=== PATIENT | male | born 1980 | race Caucasian/White ===

== ENCOUNTER 2020-11-24 15:46 | Outpatient (CLI) | payer BC, SELFPAY | END 2020-11-24 15:47 | disposition home or self-care (01) | LOC: ANHCOVIDVC 15:46 | PROVIDERS: PCP Family Medicine | DX: Z23 Encounter for immunization (principal) | CPT/HCPCS: 0001A; 91300 ==

== ENCOUNTER 2020-12-15 15:42 | Outpatient (CLI) | payer BC, SELFPAY | END 2020-12-15 15:43 | disposition home or self-care (01) | LOC: ANHCOVIDVC 15:42 | PROVIDERS: PCP Family Medicine | DX: Z23 Encounter for immunization (principal) | CPT/HCPCS: 0002A; 91300 ==

== ENCOUNTER 2021-01-30 19:02 | Emergency (ER) | payer BC, SELFPAY ==
[2021-01-30] VITALS (14 sets, daily range): BP systolic 122–155; BP diastolic 69–84; PULSE 55–70; RESP 8–21; TEMP 36.8; O2SAT 98–99
--- NOTE | ~2021-01-30 | CT_ITS ---
EXAMINATION: CTA chest abdomen pelvis DATE: 01/30/2021 20:16 INDICATION: Chest pain radiating to shoulder blades, upper back pain, epigastric pain. TECHNIQUE: Computed tomography (CT) of the chest, abdomen, and pelvis was performed with 100 cc Omnip aque 350 intravenous contrast. Automated exposure control and iterative reconstruction technique were employed. Exam dose: 1942.05 mGy-cm total exam DLP. COMPARISON: 01/30/2021 AP and lateral chest FINDINGS: CHEST CT: No thoracic aortic aneurysm or dissection. No hilar or mediastinal mass lesion or lymphadenopathy. The included portion of the thyroid gland zee ears unremarkable. Normal heart size. No pericardial or pleural effusion. Included skeletal structures are unremarkable. ABDOMEN/PELVIS CT: The liver, gallbladder, bile ducts, spleen, pancreas and pancreatic duct are unremarkable. Normal mor phology of the adrenal glands. No renal mass lesion or urinary tract calculus or hydroureteronephrosi s. The urinary bladder and prostate gland and seminal vesicles are unremarkable. Normal caliber of the abdominal aorta. No abdominal aortic aneurysm or dissection. No intraperitoneal or retroperitoneal or pelvic mass lesion or adenopathy or ascites. Normal appendix. No bowel obstruction, bowel wall thickening, pneumatosis or intraperitoneal free air is detected. Small fat-containing left inguinal hernia. Very small fat-containing umbilical hernia. Included skeletal structures are unremarkable. IMPRESSION: No thoracic or abdominal aortic aneurysm or dissection; no other significant abnormality Reviewed, dictated and finalized at [facility]. Reviewed, dictated and finalized at location A. IMPRESSION: No thoracic or abdominal aortic aneurysm or dissection; no other s ignificant abnormality
--- NOTE | ~2021-01-30 | XR_ITS ---
XR chest 2V DATE: 01/30/2021 19:42 INDICATION: Chest pain for one day TECHNIQUE: AP and lateral views COMPARISON: None FINDINGS: Normal heart size. No hilar or mediastinal enlargement. No pulmonary infiltrate or consolid ation, pleural effusion or pulmonary vascular congestion or pneumothorax. Included skeletal structure s are unremarkable. IMPRESSION: No active cardiopulmonary disease Reviewed, dictated and finalized at location A.
--- NOTE | 2021-01-30 19:08 | ECG_ITS ---
Measurements Intervals [place] Rate: 56 P: 50 [place]: 180 QRS: 72 QRSD: 98 T: 58 QT: 417 QTc: 405 Interpretive Statements SINUS BRADYCARDIA BASELINE WANDER- V4-V5 BORDERLINE ECG Electronically Signed On 01-31-2021 8:17:33 CDT by Bassam Peralta D.O.
[2021-01-30 19:31] LABS: Basophils Percent Auto 0.4 % (0.2-1.2); Eosinophils Absolute Auto 0.3 K/mm3 (0-0.3); Eosinophils Percent Auto 2.5 % (0-4.4); Hematocrit 45.7 % (42.0-52.0); Hemoglobin 15.6 g/dL (14.0-18.0); Immature Granulocyte Absolute 0.03 K/mm3 (0.00-0.031); Immature Granulocyte Percent A 0.3 % (0-0.5); Lymphocytes Absolute Auto 3.71 K/mm3 (0.9-3.2); Mean Corpuscular HGB Conc 34.1 g/dl (32-36); Mean Corpuscular Hemoglobin 29.4 pg (26-34); Mean Corpuscular Volume 86.2 fl (80-100); Mean Platelet Volume 9.3 fl (7.4-10.4); Monocytes Absolute Auto 0.8 K/mm3 (0.1-0.6); Monocytes Percent Auto 6.8 % (2.6-8.5); Neutrophils Absolute Auto 6.4 K/mm3 (1.3-6.7); Platelet Count Result 282 k/mm3 (150-375); Red Cell Distribution Width 12.4 % (11.5-14.5); White Blood Count 11.3 K/mm3 (4.5-10.0)
[2021-01-30] MEDS: MORPHINE SULFATE (*CRX) 4 MG/ML INJ IV PUSH (19:35)
[2021-01-30] MEDS: ONDANSETRON INJ 4 MG/2 ML VIAL IV PUSH (19:35)
[2021-01-30 19:40] LABS: Anion Gap 8 mmol/L (8-16); Blood Urea Nitrogen 16 mg/dL (9-20); Calcium 9.5 mg/dL (8.4-10.2); Carbon Dioxide 27 mmol/L (22-30); Chloride 105 mmol/L (98-107); Estimated CRCL calculation 117 ml/min; Estimated Glomerular Filt Rate > 60; Glucose 120 mg/dL (75-110); INR 0.9; Potassium 3.8 mmol/L (3.4-5.0); Sodium 140 mmol/L (137-145)
[2021-01-30 19:41] LABS: Partial Thromboplastin Time 21.3 SECONDS (22.3-36.8)
[2021-01-30 19:50] LABS: Alanine Aminotransferase 20 U/L (4-50); Albumin Level 4.5 g/dL (3.5-5.1); Alkaline Phosphatase 70 U/L (38-126); Aspartate Amino Transferase 27 U/L (17-59); Bilirubin,Total 0.3 mg/dL (0.2-1.3); Lipase 70 U/L (23-300)
[2021-01-30 19:52] LABS: Troponin I < 0.012 ng/mL (0.000-0.034)
--- NOTE | 2021-01-30 20:06 | ED.CHESTPAIN ---
HPI - Chest Pain General Chief Complaint: Chest Pain Stated Complaint: CP Time Seen by Provider: 01/30/21 19:06 History of Present Illness HPI narrative: Patient is a 40-year-old male who presents ER with chest pain and epigastric pain. Symptoms began in the afternoon. Chest pain is a aching pain that radiates to his back between her shoulder blades. Associated with epigastric tenderness as well. Mild nausea but no vomiting. No fevers or chills or sweats. No exertional component. Unsure of aggravating or alleviating factors. Patient reports he feels like if he could belch he would feel better. Related Data Home Medications Medication Instructions Recorded Confirmed aspirin 325 mg tablet 325 mg PO DAILY 11/10/20 11/13/20 guaifenesin 600 mg tablet, 600 mg PO ONCE tablet 11/10/20 11/13/20 extended release 12 hr Allergies Allergy/AdvReac Type Severity Reaction Status Date / Time cefazolin [From Ancef] AdvReac Mild Rash Verified 01/01/21 10:58 Review of Systems Review of Systems: All systems reviewed & are unremarkable except as noted in HPI and below Constitutional: Constitutional: Denies chills, Denies fever(s) and Denies weakness ENT: Denies nasal congestion and Denies sore throat Cardiovascular: Cardiovascular: Reports chest pain, Denies rapid heart rate and Reports radiating jaw, neck or arm pain Respiratory: Respiratory: Denies cough and Denies dyspnea Gastrointestinal: Gastrointestinal: Reports abdominal pain, Reports bloating, Denies diarrhea, Reports nausea and Denies vomiting [facility] Past Medical History Medical History (Updated 01/30/21 @ 21:29 by Shawn Rondon MD) Factor 5 Leiden mutation, heterozygous Torsion of testicle Surgical History Surgical History (System 01/01/21 @ 10:58 by Elzbieta Gonzalez) H/O medial meniscus repair of right knee H/O superior vena cava filter placement History of medial meniscus repair of left knee Family History Family History (System 01/01/21 @ 10:58 by Elzbieta Gonzalez) Father Diabetes mellitus Non Hodgkin's lymphoma Other Cerebrovascular accident Social History Social History (System 01/01/21 @ 10:58 by Elzbieta Gonzalez) Smoking status: Never smoker Alcohol intake: current Substance use: never Substance use type: does not use Gender identity (if verbalized by the patient): Male Agree to blood products: Yes Exam Narrative: Exam Narrative: GENERAL: Uncomfortable-appearing, well-nourished, and in mild distress. HEAD: Normocephalic, atraumatic. ENT: Mucous membranes moist. CHEST: Clear to auscultation. No respiratory distress. HEART: Regular rate and rhythm. Normal peripheral pulses. ABDOMEN: Soft, tender to palpation to the epigastrium with guarding, nondistended. EXTREMITIES: Normal range of motion. No edema. SKIN: Warm, dry, no rash. NEURO: Alert and oriented x3. PSYCH: Normal mood and affect. Course Course Emergency Course: Patient resting comfortably. Pain-free after morphine. Repeat abdominal exam without tenderness. Informed results. Patient still may be suffering from biliary colic and has been educated to adhere to a low-fat diet. Needs follow-up with his PCP for further treatment evaluation. Vital Signs Vital signs: Vital Signs Pulse Rate 59 L 01/30/21 19:07 Respiratory Rate 14 01/30/21 19:07 Blood Pressure 155/84 H 01/30/21 19:07 Pulse Oximetry 98 01/30/21 19:07 Temperature 98.2 F 01/30/21 19:21 Pulse Rate 70 01/30/21 21:12 Respiratory Rate 15 01/30/21 21:12 Blood Pressure 124/78 01/30/21 21:12 Pulse Oximetry 99 01/30/21 21:12 MDM - Chest Pain Lab Data Result diagrams: 01/30/21 19:25 01/30/21 19:25 Labs: Lab Results 01/30/21 01/30/21 01/30/21 Range/Units 19:25 19:25 19:25 WBC 11.3 H (4.5-10.0) K/mm3 RBC 5.30 (4.6-6.20) M/mm3 Hgb 15.6 (14.0-18.0) g/dL Hct 45.7 (42.0-52.0) % MCV 86.2
== END 2021-01-30 21:20 | disposition home or self-care (01) ==
PROVIDERS: Emergency Provider Emergency Medicine; PCP Family Medicine
DX: R10.13 Epigastric pain (principal); Z79.82 Long term (current) use of aspirin; D68.51 Activated protein C resistance; R00.1 Bradycardia, unspecified
CPT/HCPCS: 36415; 71046; 71275; 74174; 80048; 80076; 83690; 84484; 85025; 85610; 85730; 93005; 96374; 96375; 99284; J2270; J2405; Q9967

== ENCOUNTER → 2021-02-10 07:51 | Outpatient (CLI) | payer BC, SELFPAY ==
--- NOTE | ~2021-02-10 | US_ITS ---
EXAMINATION: US abdomen complete DATE: 02/10/2021 08:20 INDICATION: Epigastric pain, calculus of bile duct without cholangitis or cholecystitis TECHNIQUE: Multiple grayscale and Doppler ultrasound images of the abdomen were obtained. COMPARISON: 01/30/2021 FINDINGS: The head and body of the pancreas are normal. The pancreatic tail is obscured by bowel gas. The liver demonstrates increased echogenicity, heterogenous echotexture, and decreased through trans mission. No surface nodularity. Normal hepatopetal flow in the main portal vein. The gallbladder is n ormal with no abnormal wall thickening, pericholecystic fluid or stones. The normal common bile duct measures 3 mm. There was no sonographic Reyes sign. The visualized portions of the aorta and inferio r vena cava are normal. The right kidney measures 11.8 x 5.1 x 6.1 cm. The left kidney measures 12.0 x 5.3 x 6.0 cm. The kidn eys demonstrate normal parenchymal echogenicity. There is no hydronephrosis. The spleen is normal in appearance and measures 13.8 cm. IMPRESSION: 1. No sonographic correlate for the patient's symptoms. 2. Diffuse hepatic steatosis. Reviewed, dictated and finalized at location B.
== END ==
PROVIDERS: PCP Family Medicine; Visit Provider Physician Assistant Medical
DX: K80.50 Calculus of bile duct without cholangitis or cholecystitis without obstruction (principal); K76.0 Fatty (change of) liver, not elsewhere classified
CPT/HCPCS: 76700

== ENCOUNTER 2021-02-22 07:09 | Outpatient (CLI) | payer BC, SELFPAY ==
[2021-02-22 07:55] LABS: Basophils Percent Auto 0.4 % (0.2-1.2); Eosinophils Absolute Auto 0.3 K/mm3 (0-0.3); Eosinophils Percent Auto 3.4 % (0-4.4); Hematocrit 47.5 % (42.0-52.0); Hemoglobin 16.3 g/dL (14.0-18.0); Immature Granulocyte Absolute 0.02 K/mm3 (0.00-0.031); Immature Granulocyte Percent A 0.3 % (0-0.5); Lymphocytes Absolute Auto 2.14 K/mm3 (0.9-3.2); Lymphocytes Percent Auto 27.9 % (18.3-44.2); Mean Corpuscular HGB Conc 34.3 g/dl (32-36); Mean Corpuscular Hemoglobin 29.9 pg (26-34); Monocytes Absolute Auto 0.6 K/mm3 (0.1-0.6); Monocytes Percent Auto 7.8 % (2.6-8.5); Neutrophils Absolute Auto 4.6 K/mm3 (1.3-6.7); Neutrophils Percent Auto 60.2 % (45.5-73.1); Platelet Count Result 229 k/mm3 (150-375); Red Blood Count 5.46 M/mm3 (4.6-6.20); Red Cell Distribution Width 12.4 % (11.5-14.5); White Blood Count 7.7 K/mm3 (4.5-10.0)
== END 2021-02-22 07:10 | disposition home or self-care (01) ==
PROVIDERS: PCP Family Medicine; Visit Provider Physician Assistant Medical
DX: D72.829 Elevated white blood cell count, unspecified (principal)
CPT/HCPCS: 36415; 85025

== ENCOUNTER 2021-05-28 08:07 | Outpatient (CLI) | payer BC, SELFPAY ==
[2021-05-28 09:59] LABS: Alanine Aminotransferase 23 U/L (4-50); Aspartate Amino Transferase 40 U/L (17-59)
== END 2021-05-28 08:08 | disposition home or self-care (01) ==
PROVIDERS: PCP Family Medicine; Visit Provider Podiatrist Foot & Ankle Surgery
DX: B35.1 Tinea unguium (principal)
CPT/HCPCS: 36415; 84450; 84460

== ENCOUNTER 2022-03-15 00:04 | Day surgery (SDC) | payer BC, SELFPAY ==
[2022-03-07 13:26] VITALS: BMI 40.8
--- NOTE | 2022-03-07 13:33 | PC.NURSE ---
Report to the Outpatient Waiting Room, entrance under the green pavilion located off [facility], at time _0600_ on date _[id number]_. OR Time: _0730_. - You and your visitor will be asked a series of questions to screen for COVID 19 for your protection. - Only one visitor is allowed at this time. - The patient visitor is requested to leave or wait in car when not with patient. - A mask is required within the hospital. Patients may have clear liquids (water, carbonated beverages, clear teas, apple juice) until 3 hours prior to surgery with a maximum of 20 ounces. - No food from midnight until time of surgery Take the following medications with a SIP of water the morning of surgery: ___None Medications to discontinue per physician Patient says stopping aspirin 7 days before surgery.___ Date to take last lnfk___[id number] Please no make-up, nail mosotho, hairspray, perfume, deodorant, or body powder the day of surgery. No jewelry (including any body piercings) or valuables the day of surgery, leave them at home. Please take a shower or bath the night before, or the morning of, surgery with an antibacterial soap. Wear comfortable, loose fitting clothing. - Jewelry must be removed prior to entering the operating room. Rings and piercings that are not removed may be cut off. - The hospital will not accept responsibility for valuables. - Please leave all valuables, including medications, at home the day of surgery. If you are going home after surgery, a licensed regional [employer] company driver must drive you home. - NO public transportation without another adult. - We recommend that an adult stay with you for 24 hours following discharge. - We also recommend that you do not drive, make important decision, drink alcoholic beverages, or take any drugs that were not prescribed by your health care provider for at least 24 hours after your discharge time. Follow any additional instructions given to you from your surgeon. If you or anyone in your household have experienced Covid symptoms in the past week, please notify your surgeon or the nurse liaison at the phone number below for possible testing. Telephone instructions given to _Patient____and asked if any additional questions and then verbalized understanding. Patient advised to call surgeon office or pre surgery nurse liaison [phone] if any additional questions.
--- NOTE | 2022-03-14 13:30 | WPDANESEPPF ---
Anes - Initial Pre Proc Eval Procedure: Operation Date: 03/15/22 07:30 Proposed Procedures p Bilateral Vasectomy, Bilateral Scrotal Exploration - Carlos Armstrong MD Date/Time: 03/14/22 13:30 Surgeon: Carlos Armstrong MD Pre Op Diagnosis: sterilization Patient Data Age: 41 Gender: M Height: 1.83 m Weight: 136.4 kg Allergies Allergy/AdvReac Type Severity Reaction Status Date / Time cefazolin [From Anc] Allergy Mild Rash Verified 03/15/22 07:05 Home Medications Medication Instructions Recorded Confirmed Type aspirin 325 mg tablet 325 mg PO DAILY 11/10/20 03/07/22 History terbinafine HCl 250 mg tablet 250 mg PO DAILY #90 tabs 01/12/22 03/07/22 Rx efinaconazole 10 % topical 1 applic topical DAILY 03/07/22 03/07/22 History solution with applicator (Jublia) Patient hx anesthesia problems: none Family hx anesthesia problems: none Results Review: All pre-operative results and documents have been reviewed as part of the pre-operative evaluation. [facility] Past Medical History Medical History Body mass index (BMI) of 40.1-44.9 in adult Factor 5 Leiden mutation, heterozygous Torsion of testicle Surgical History Surgical History H/O medial meniscus repair of right knee H/O superior vena cava filter placement History of medial meniscus repair of left knee Family History Family History Father Diabetes mellitus Non Hodgkin's lymphoma Other Cerebrovascular accident Social History Social History Smoking status: Never smoker Second hand tobacco smoke exposure: No Alcohol intake: current Drinks per week: 8 Alcohol use details: Pt drinks beer/wine 2-3 weekly Substance use: never Substance use type: does not use Living arrangements: with family Gender identity (if verbalized by the patient): Male Sexual Orientation (if Verbalized by the Patient): Straight or Heterosexual Spiritual care concerns: No Agree to blood products: Yes Anes - Eval Final PreProcedure Day of Procedure 03/14/22 13:30 Patient weight: morbidly obese Heart: regular rate and rhythm Lungs: clear to auscultation Airway: Mallampati scale class II Neurological: alert and oriented Last oral intake: >/= 8 hours ASA classification: III Emergent: no Anesthetic plan: proceed Anesthesia type and monitoring: general LMA and standard monitoring Results Review: All pre-operative results and documents have been reviewed as part of the pre-operative evaluation. Informed Consent: The patient's anesthetic plan and its attendant risks and benefits were discussed with the patient/family/POA. Questions were solicited and answers provided to the satisfaction of the patient/family/POA.
[2022-03-15] VITALS (8 sets, daily range): BP systolic 129–153; BP diastolic 80–96; PULSE 63–82; RESP 13–18; TEMP 36.2–36.5; O2SAT 95–100
[2022-03-15] MEDS: LACTATED RINGERS 1,000 ML 30 ML IV CONT (06:52)
--- NOTE | 2022-03-15 07:27 | WPDHPUPDATE1 ---
History and Physical Update Update Date/Time: 03/15/22 07:27 History and Physical has been reviewed, including an updated exam of the patient. There are NO changes in the patient's condition. Risks, benefits, and alternatives have been discussed and questions answered. Patient agrees to proceed with procedure. Proceed with bilateral vasectomy, possible scrotal exploration
[2022-03-15] MEDS: levoFLOXacin 500 MG/D5W 100 ML 500 MG/100 ML BAG 100 MG IVPB (07:44)
[2022-03-15] MEDS: BACITRACIN OINTMENT 15 GM TUBE 1 APPLIC TOPICAL (07:57)
--- NOTE | 2022-03-15 08:05 | W.PM.PROC2 ---
Procedure Note - Detailed Date of Procedure 03/15/22 Pre-op Diagnosis sterilization Post-op Diagnosis Same Procedure Performed Bilateral vasectomy Surgeon Carlos Armstrong MD Anesthesia General Description of Procedure Patient is taken to the operative suite correctly identified. Once anesthesia was obtained he was prepped and draped usual sterile fashion. A midline scrotal incision was made. The right vas was isolated. Vas clamp was placed on the vas. A segment was then excised the ends were fulgurated. They were then suture ligated using 3-0 chromic and were buried. The patient had a left orchiopexy and a much thicker left cord making it difficult to palpate the left vas in the office. Under anesthesia we were able to isolate the left vas. A segment also was excised with the ends fulgurated ligated and buried. 1% lidocaine was used to anesthetize the skin and the cord. The skin was closed using 3-0 chromic in interrupted fashion. Patient tolerated procedure well without complications and was taken recovery room stable condition. Estimated Blood Loss 0 Drains No Packing No Pathology Yes Complications No immediate complications Condition Stable Disposition PACU
== END 2022-03-15 09:51 | disposition home or self-care (01) ==
PROVIDERS: PCP Family Medicine; Visit Provider Urology
PROC: (CPT 55250; principal; 2022-03-15 07:30)
DX: Z30.2 Encounter for sterilization (principal); Z79.82 Long term (current) use of aspirin; D68.51 Activated protein C resistance; E66.01 Morbid (severe) obesity due to excess calories; Z68.41 Body mass index [BMI] 40.0-44.9, adult
CPT/HCPCS: 55250; 88300; A9270; J1100; J1956; J2250; J2405; J2704; J3010; J7120

== ENCOUNTER 2022-06-17 08:06 | Outpatient (CLI) | payer BC, SELFPAY ==
--- NOTE | ~2022-06-17 | US_ITS ---
EXAMINATION: US arterial ankle brachial ind DATE: 06/17/2022 09:45 INDICATION: Lower limb pain TECHNIQUE: Segmental pressures and plethysmographic and Doppler waveforms of the brachial and lower e xtremity arteries were obtained. COMPARISON: None. FINDINGS: Right and left brachial artery pressures of 123 mm Hg and 126 mm Hg, respectively, are concordant (no rmal difference <= 30 mmHg). The right ankle-brachial index (MALA) is 1.16 (normal >= 0.9-1.0). The right great toe-brachial index (TBI) is 0.25 (normal >= 0.65). Arterial Doppler waveforms are triphasic at the right posterior tibia l artery and biphasic at the right dorsalis pedis artery, both with brisk systolic upstrokes. The left MALA is 1.26. The left TBI is 0.74. Arterial Doppler waveforms are triphasic with brisk systo lic upstrokes at both left posterior tibial and dorsalis pedis arteries. IMPRESSION: 1. 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 2. No significant arterial occlusive disease to the left lower limb with normal left MALA and TBI. Reviewed, dictated and finalized at location B. IMPRESSION: 1. 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 2. No significant arterial occlusive disease to the left lower limb with normal left MALA and TBI.
--- NOTE | ~2022-06-17 | US_ITS ---
EXAMINATION: US venous doppler [facility] DATE: 06/17/2022 09:45 INDICATION: Lower limb pain TECHNIQUE: Grayscale ultrasound images without and with compression and Doppler ultrasound images of the bilateral lower extremity veins were obtained. COMPARISON: None. FINDINGS: The visualized portions of right common femoral vein, profunda (deep) femoral vein, femoral vein, pop liteal vein, posterior tibial veins, peroneal veins, gastrocnemius vein and greater saphenous vein ou tflow are patent. The visualized portions of left common femoral vein, profunda femoral vein, femoral vein, popliteal v ein, posterior tibial veins, peroneal veins, gastrocnemius vein and greater saphenous vein outflow ar e patent. IMPRESSION: 1. No deep venous thrombosis in either lower limb. Reviewed, dictated and finalized at location B.
== END 2022-06-17 08:07 | disposition home or self-care (01) ==
PROVIDERS: PCP Family Medicine; Visit Provider Nurse Practitioner Family
DX: D72.829 Elevated white blood cell count, unspecified (principal); M25.50 Pain in unspecified joint; R40.0 Somnolence
CPT/HCPCS: 93922; 93970

== ENCOUNTER 2022-08-05 07:52 | Outpatient (CLI) | payer BC, SELFPAY ==
--- NOTE | 2022-08-31 12:23 | WPDSLEEPSTUD ---
Sleep Study Date of Study: 08/05/22 Ordering Provider: Baljeet Biswas MD Interpreting Physician: Xenia Aranda MD Sleep Study Type: Polysomnogram Height: 1.83 m Weight: 145.15 kg Body Mass Index: 43.4 Neck Circumference (inches): 17.5 [place]: 6 Reason for Sleep Study Loud snoring Sleep History Ciaran Garrison is a 41-year-old male with a history of very loud snoring, although he does not awaken from sleep feeling short of breath. He rarely awakens at night with heartburn, belching or coughing. His snoring is always loud enough that others are aware and complain. He occasionally has trouble sleeping with a cold. He does not wake up gasping for breath at night. He does not have breathing problems at night observed by others. He does not sweat excessively at night or notice his heart pounding or beating irregularly at night. He rarely falls asleep during the day, rarely falls asleep involuntarily. He does not fall asleep while driving. He does not have loss of muscle tone with strong emotion. He does not have daytime difficulties due to excessive sleepiness. He does not feel paralyzed on waking or falling asleep nor does he have vivid dreamlike scenes on waking or falling asleep. He does not feel afraid to go to sleep. He rarely has nightmares. He frequently remembers his dreams. He frequently has racing thoughts. He rarely feels sad or depressed. He occasionally has anxiety and muscular tension. He does not notice parts of his body jerking. He does not kick at night. He always has crawling and aching feelings in his legs and leg pain at night. He does not have morning jaw pain. He does not grind his teeth at night. He constantly is bothered by pain during the day and occasionally awakened by pain at night. He constantly wakes up feeling stiff in the morning with sore achy muscles and pain in the neck and spine. He has problems with nasal allergies. He has gained weight during the last year. Normal bedtime is 9:00 p.m. falling asleep within 1/2 hour typically waking 1-2 times at night for 10 minutes to use the bathroom. He returns to sleep, wakes the morning at 6:00 a.m.. His weekend schedule is similar, bedtime is 10:00 p.m. and he wakes between 6 and 7:00 a.m.. He estimates getting 8-9 hours of sleep at night. He does not take naps in the afternoon or evening. A brief nap lasting 10 or 15 minutes is not refreshing. He is usually drowsy in the morning for 2 hours or longer. He feels better in the afternoon compared to other times of day. Habits: Never smoked tobacco. Caffeine 3-4 per day. Alcohol very rarely once or twice a week. No recreational substance use. [facility], [facility] Past Medical History Medical History Body mass index (BMI) of 40.1-44.9 in adult Factor 5 Leiden mutation, heterozygous Torsion of testicle Surgical History Surgical History H/O medial meniscus repair of right knee H/O superior vena cava filter placement H/O vasectomy History of medial meniscus repair of left knee Family History Family History Father Diabetes mellitus Non Hodgkin's lymphoma Mother Hypertension Sibling No problems noted. 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
[2022-08-31 12:36] VITALS: BMI 43.4
== END 2022-08-06 06:22 | disposition home or self-care (01) ==
LOC: ANHCSM 07:53
PROVIDERS: PCP Family Medicine; Visit Provider Family Medicine
DX: G47.33 Obstructive sleep apnea (adult) (pediatric) (principal); G47.10 Hypersomnia, unspecified; R40.0 Somnolence; Z68.41 Body mass index [BMI] 40.0-44.9, adult
CPT/HCPCS: 95810

== ENCOUNTER 2023-08-21 14:11 | Outpatient (CLI) | payer BC, SELFPAY ==
[2023-08-21 14:41] LABS: Alanine Aminotransferase 30 U/L (6-50); Aspartate Amino Transferase 43 U/L (17-59)
== END 2023-08-21 14:12 | disposition home or self-care (01) ==
LOC: ANHLAB 14:13
PROVIDERS: PCP Family Medicine; Visit Provider Podiatrist Foot & Ankle Surgery
DX: B35.1 Tinea unguium (principal)
CPT/HCPCS: 36415; 84450; 84460

== ENCOUNTER 2024-03-06 08:43 | Outpatient (CLI) | payer BC, SELFPAY ==
[2024-03-06 10:21] LABS: Alanine Aminotransferase 31 U/L (6-50); Aspartate Amino Transferase 45 U/L (17-59)
== END 2024-03-06 08:44 | disposition home or self-care (01) ==
LOC: ANHLAB 08:45
PROVIDERS: PCP Family Medicine; Visit Provider Podiatrist Foot & Ankle Surgery
DX: B35.1 Tinea unguium (principal)
CPT/HCPCS: 36415; 84450; 84460

== ENCOUNTER 2024-09-25 09:11 | Outpatient (CLI) | payer BC, SELFPAY ==
--- NOTE | ~2024-09-25 | XR_ITS ---
EXAMINATION: XR ribs BI 3V w CXR 2V DATE: 09/25/2024 10:19 INDICATION: Pleurodynia. TECHNIQUE: Frontal and lateral views of the chest and 2 views on 3 radiographs of the right ribs and 2 views on 3 radiographs of the left ribs were obtained. COMPARISON: Chest 2 views 01/30/2021, chest CT 01/30/2021 FINDINGS: CHEST TWO VIEWS: There is no pneumonia, pleural effusion, or pneumothorax. The heart size is normal. BILATERAL RIBS: There is no rib fracture. IMPRESSION: 1. No rib fracture. 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 No rib fracture.
== END 2024-09-25 09:12 | disposition home or self-care (01) ==
LOC: MICIMG 09:13
PROVIDERS: PCP Family Medicine; Visit Provider Physician Assistant Medical
DX: R07.81 Pleurodynia (principal)
CPT/HCPCS: 71046; 71110

== ENCOUNTER 2024-12-19 18:20 | Emergency (ER) | payer BC, SELFPAY ==
--- NOTE | ~2024-12-19 | US_ITS ---
EXAMINATION: US venous doppler [facility] DATE: 12/19/2024 18:41 INDICATION: Pain and swelling TECHNIQUE: Grayscale ultrasound images without and with compression and Doppler ultrasound images of the left lower extremity veins were obtained. COMPARISON: 06/17/2022. FINDINGS: The visualized portions of left common femoral vein, profunda (deep) femoral vein and femoral veins a re patent and compressible. Thrombosis of the popliteal vein, peroneal veins and posterior tibial veins. Greater saphenous vein outflow is patent. IMPRESSION: Noncompressibility and absence of flow within the popliteal, peroneal and posterior tibial veins Reviewed, dictated and finalized at location A. IMPRESSION: Noncompressibility and absence of flow within the popliteal, peroneal and poste rior tibial veins
--- OUTSIDE RECORDS SUMMARY | 2024-12-19 18:21 | XMS_ITS | Clinical Summary ---
Author Organization [facility] en Address [address] [place], [place] [address]MA[place] [address] Care Team Providers Care Hairspring Staker Name Role Phone Alfredo Hoffman MD Primary Care Provider [phone] Allergies Active Allergy Reactions Criticality Noted Date Comments Cefazolin Rash Low 07/02/2012 Medications aspirin (MADDIE) 325 mg Oral tablet Take 325 mg by mouth daily. Active pseudoephedrine- guaiFENesin (MUCINEX D) 60-600 mg Extended Release 12 hour tabletIndication s:Acute recurrent frontal sinusitis Take 1 Tablet by mouth 2 times daily. 30 Tablet 2 02/16/2017 Active Active Problems Problem Noted Date Diagnosed Date Factor 5 Leiden mutation, heterozygous 5 DVT (deep venous thrombosis) 06/26/2012 Other pulmonary embolism and infarction 06/26/20 12 Resolved Problems Problem Noted Date Diagnosed Date Resolved Date Acute frontal sinusitis 04/12/2016 08/3 Encounters Date Type Department Care Team Description 11/26/2024 External Device Data STL ABSTRACTION Provider, Abstract 10/23/2024 External Device Data STL ABSTRACTION Provider, Abstract 10/22/2024 External Device Data STL ABSTRACTION Provider, Abstract 10/19/2024 External Device Data STL ABSTRACTION Provider, Abstract 10/18/2024 External Device Data STL ABSTRACTION Provider, Abstract 10/08/2024 External Device Data STL ABSTRACTION Provider, Abstract from Last 3 Months Immunizations Immunization Administration Dates Next Due (ADACEL/BOOSTRIX)(10 YR UP) TDAP VACCINE, 0.5ML, IM 10/02/2014 INFLUENZA VACCINE TRIVALENT SPLIT VIRUS, (6 MOS UP), 0.5ML (PF), IM 07/26/2024 Family History Medical History Relation Name Comments Diabetes Father Hypertension Maternal Grandfather Stroke Maternal Grandfather Healthy Mother Relation Name Status Comments Father Alive Maternal Grandfather Mother Alive Social History Tobacco Use Types Packs/Day Years Used Date Smoking Tobacco: Never Smokeless Tobacco: Never Alcohol Use Standard Drinks/Week Comments Yes 5.8 (1 standard drink = 0.6 oz p ure alcohol) Sex and Gender Information Value Date Recorded Sex Assigned at Not on file Legal Sex Male 6:08 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 Gender Identity Not on file Sexual Orientation Not on file Occupation Industry Job Start Date Job End Date Not on file Not on file Not on file Not on file Last Filed Vital Signs Vital Sign Reading Time Taken Comments Blood Pressure 126/74 03/30/2018 1:32 PM CDT Pulse 86 03/30/2018 1:32 PM CDT Temperature 36.9 C (98.4 F) 03/30/2018 1:32 PM CDT Respiratory Rate 18 01/10/2015 8:30 AM CDT Oxygen Saturation 98% 03/30/2018 1:32 PM CDT Inhaled Oxygen Concentration - - Weight 137.9 kg (304 lb) 03/30/2018 1:32 PM CDT Height 182.9 cm (6') 03/30/2018 1:32 PM CDT Body Mass Index 41.23 03/30/2018 1:32 PM CDT Plan of Treatment Health Maintenance Due Date Last Done Comments HEPATITIS B VACCINES (1 of 3 - 19+ 3-dose series) 1997 COLORECTAL SCREENING 2023 Colorectal Cancer Screening 2023 FIT-DNA Q 3 years 2023 FIT/FOBT Q 1 year 2023 Flex Sig/CT Colonography Q 5 years 2023 DTAP/TDAP/TD VACCINES (2 - T d or Tdap) 10/02/2024 10/02/2014 INFLUENZA VACCINE Completed 07/26/2024 HPV VACCINES Aged Out No longer eligi ble based on patient's age to complete this topic Medical Devices Implanted Type Area Assembler Finger Buffs Device Identifier Shelf Expiration Date Model / Serial / Lot Fltr Cordova Vena Cava Fem [id number] - [id number] Implanted:Qty: 1 on 06/29/2012 by Oseas Calderon MD at [facility] Catheter N/A: Vena Cava CR [employer] 02/10/2013 [id number] / / [id number] Insurance RX [facility] [employer] Advance Directives For more information, please contact: [phone] * Full Code (Latest Code Status on File) Date Activated Date Inactivated Comments 10/26/2012 10:40 AM 10/26/2012 2:33 PM * Full Code Date Activated Date Inactivated Comments 10/26/2012 8:00 AM 10/26/2012 10:40 AM * Full Code Date Activated Date Inactivated Comments 06/29/2012 11:29 AM 06/29/2012 3:52 PM * Full Code Date Activated Date Inactivated Comments 06/29/2012 8:00 AM 06/29/2012 11:29 AM Care Teams Hairspring Staker Relationship Specialty Start Date End Date Alfredo Hoffman MD PCP - General Family Practice 10/21/11
--- OUTSIDE RECORDS SUMMARY | 2024-12-19 18:21 | XMS_ITS | Continuity of Care Document ---
Author Organization [facility] [facility] Address [address] [place] [address] [address] [place] [address] Phone Care Team Providers Care Data Communications Software Consultant Name Role Phone Saldana Love WILCOX Unavailable Unavailable Procedures Procedure Date Progress Note Therapeutic Exercise Therapeutic Activities Manual Therapy Hot or Cold Pack Therapeutic Exercise Therapeutic Activities Manual Therapy Hot or Cold Pack Therapeutic Exercise Therapeutic Activities Hot or Cold Pack Therapeutic Exercise Therapeutic Activities Hot or Cold Pack Therapeutic Exercise Therapeutic Activities Hot or Cold Pack Progress Note Therapeutic Exercise Therapeutic Activities Hot or Cold Pack Therapeutic Exercise Therapeutic Activities Therapeutic Exercise Therapeutic Activities Hot or Cold Pack PT Evaluation Moderate Complexity Therapeutic Exercise Manual Therapy Hot or Cold Pack THERAPEUTIC EXERCISES NEUROMUSCULAR RE-ED MANUAL THERAPY FUNC ACTIVITY HOT/COLD PACK ELECTRIC STIMULATION UNATT THERAPEUTIC EXERCISES NEUROMUSCULAR RE-ED MANUAL THERAPY FUNC ACTIVITY HOT/COLD PACK ELECTRIC STIMULATION UNATT THERAPEUTIC EXERCISES MANUAL THERAPY FUNC ACTIVITY HOT/COLD PACK ELECTRIC STIMULATION UNATT THERAPEUTIC EXERCISES MANUAL THERAPY FUNC ACTIVITY HOT/COLD PACK ELECTRIC STIMULATION UNATT THERAPEUTIC EXERCISES MANUAL THERAPY FUNC ACTIVITY HOT/COLD PACK ELECTRIC STIMULATION UNATT THERAPEUTIC EXERCISES MANUAL THERAPY FUNC ACTIVITY HOT/COLD PACK ELECTRIC STIMULATION UNATT PT EVALUATION THERAPEUTIC EXERCISES MANUAL THERAPY HOT/COLD PACK ELECTRIC STIMULATION UNATT Electrodes THERAPEUTIC EXERCISES MANUAL THERAPY ELECTRIC STIMULATION UNATT HOT/COLD PACK THERAPEUTIC EXERCISES MANUAL THERAPY ELECTRIC STIMULATION UNATT PT EVALUATION THERAPEUTIC EXERCISES MANUAL THERAPY ELECTRIC STIMULATION UNATT Electrodes Advance Directives Directive Yes / No Effective Date File Name No Information Encounters Encounter Description Practice Location Reason(s) For Visit Diagnoses Date Provider Providers Copied on Encounter [facility], [place], [place], [id number], [place] tel:[phone] [facility] tear of medial meniscus, current injury, r knee, subsPain in right kneePain in left knee 8 Les Aleman. [address] [facility], [address], [place], [address], [place]. tel:[phone] [facility], [place], [place], [id number], tel:[phone] [facility] tear of medial meniscus, current injury, r knee, subsPain in right kneePain in left knee 8 Les Aleman. [address] [facility], [address], [place], [address], [place]. tel:[phone] [facility], [place], [place], [address], [place] tel:[phone] [facility] tear of medial meniscus, current injury, r knee, subsPain in right kneePain in left knee 8 Les Aleman. [address] [facility], [address], [place], [address], [place]. tel:[phone] [facility], [place], [place], [address], [place] tel:[phone] [facility] tear of medial meniscus, current injury, r knee, subsPain in right kneePain in left knee Nov-2 8 Les Aleman. [address] [facility], [address], [place], [address], [place]. tel:[phone] [facility], [place], [place], [address], [place] tel:[phone] [facility] tear of medial meniscus, current injury, r knee, subsPain in right kneePain in left knee 8 Les Aleman. [address] [facility], [address], [place], [address], [place]. tel:[phone] [facility], [place], [place], [address], [place] tel:[phone] [facility] tear of medial meniscus, current injury, r knee, subsPain in right kneePain in left knee Nov- 8 Les Aleman. [address] [facility], [address], [place], [address], [place]. tel:[phone] [facility], [place], [place], [address], [place] tel:[phone] [facility] tear of medial meniscus, current injury, r knee, subsPain in right kneePain in left knee Apr-1 2-201 8 Les Aleman. [address] [facility], [address], [place], [address], [place]. tel:[phone] [facility], [place], [place], [address], [place] tel:[phone] [facility] tear of medial meniscus, current injury, r knee, subsPain in right kneePain in left knee Apr-1 0-201 8 Lse Aleman. [address] [facility], [address], [place], [address], [place]. tel:[phone] [facility], [place], [place], [address], [place] tel:[phone] [facility] tear of medial meniscus, current injury, r knee, subsPain in right kneePain in left knee Apr-0 6-201 8 Les Aleman. [address] [facility], [address], [place], [address], [place]. tel:[phone] [facility], [place], [place], [address], [place] tel:[phone] [facility] No Information December-2 3-201 6 [place] Sushil. [address] [place] [address], [address], [place], [address], [place]. tel:[phone] [facility], [place], [place], [address], [place] tel:[phone] [facility] No Information December-1 2-201 6 [place] Sushil. [address] [place] [address], [address], [place], [address], [place]. tel:[phone] [facility], [place], [place], [address], [place] tel:[phone] [facility] No Information December-0 9-201 6 [place] Sushil. [address] [facility], [address], [place], [address], [place]. tel:[phone] [place] [address], [address], [place], [place], [address], [place] tel:[phone] [facility] No Information May-0 5-201 6 [place] Sushil. [address] [place] [address], [address], [place], [address], [place]. tel:[phone] [place] [address], [address], [place], [place], [address], [place] tel:[phone] [facility] No Information May-0 3-201 6 [place] Sushil. [address] [place] [address], [address], [place], [address], [place]. tel:[phone] [place] [address] [facility] [address], [place], [place], [address], [place] tel:[phone] [facility] No Information Apr-2 8-201 6 [place] Sushil. [address] [place] [address], [address], [place], [address], [place]. tel:[phone] [facility], [place], [place], [address], [place] tel:[phone] [facility] No Information Apr-2 6-201 6 [place] Sushil. [address] [place] [address], [address], [place], [address], [place]. tel:[phone] [place], [place] [address], [place], [place], [address], [place] tel:[phone] [facility] No Information Dec-0 3-201 5 Argueta Dinorah. [address] [place] [address], [address], [place], [address], [place]. tel:[phone] [facility], [address], [place], [place], [address], [place] tel:[phone] [facility] No Information Dec-0 1-201 5 Argueta Dinorah. [address] [facility], [address], [place], [address], [place]. tel:[phone] [facility] [facility] [address], [place], [place], [address], [place] tel:[phone] [facility] Effusion, left kneeStiffness of left knee, not elsewhere classifiedOther abnormalities of gait and mobilityOth tear of medial meniscus, current injury, left knee, subs Nov- Argueta Dinorah. [address] [facility], [address], [place], [address], [place]. tel:[phone] Family History Family Member Type Diagnosis Age At Onset No Information Payers Payer name Insurance type Covered republican ID Hannah yeh(s) [facility] CI [id number] Social History Type Description Quantity Date Captured Comments Sex Male Smoking Status No Information Chief Complaint And Reason For Visit No Information Reason For Referral Reason For Referral No Information History Of Present Illness Encounter Date Complaint History Of Prese nt Illness No Information Functional Status Date Functional Assessmen t No Information Instructions Date Instruction Additional Infor mation No Information Assessments Type Assessment Date No Information Patient Care Teams Name Effective Dates (start - stop) Status Members No Information
--- OUTSIDE RECORDS SUMMARY | 2024-12-19 18:21 | XMS_ITS | Clinical Summary ---
Author Organization [facility] Address [address] [place] [address] Care Team Providers Care Veterinarian Poultry Name Role Phone Baljeet Biswas MD Primary Care Provider [phone] Allergies Active Allergy Reactions Criticality Noted Date Comments Cefazolin Rash Medium 06/22/2022 Medications aspirin 325 mg tablet Take 325 mg by mouth daily Active efinaconazole 10 % solution with applicator Apply topically daily Active terbinafine (LamiSIL) 250 mg tablet Take 250 mg by mouth daily Active Xarelto 2.5 mg tablet Take 2.5 mg by mouth 2 (two) times a day 2 Active Active Problems Problem Noted Date Diagnosed Date 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 Patient denies any rest pain or ischemic ulcerations. Bilateral lower extremities are warm, well perfused with palpable pulses. Plan: Patient to obtain lower extremity arterial Doppler within 1-2 weeks. We will call patient with results. If results are concerning, we will have patient follow-up in the office for further evaluation. Neoplasm of uncertain behavior of skin 6 Skin neoplasm 11/20/2015 Keratosis pilaris 11/20/2015 [place] stain of skin 11/20/2015 Skin benign neoplasm 11/20/2015 Keratosis, senilis 11/20/2015 Factor 5 Leiden mutation, heterozygous 5 Assessment & Plan (06/23/2022 5:02 PM AQUATICS SPECIALIST): Impression: Patient has a history of a right lower extremity DVT in 2011. Also diagnosed with factor 5 Leiden mutation. Patient reports he is currently not on any anticoagulation therapy. Plan: Recommend anticoagulation therapy with patient's history of Factor 5 Leiden. Will defer patient to primary care provider for management. DVT (deep venous thrombosis) 06/26/2012 Assessment & Plan (06/23/2022 5:01 PM AQUATICS SPECIALIST): Impression: Patient has a history of DVT to the right lower extremity in 2011. Patient was also diagnosed with factor 5 Leiden mutation and is currently not on any anticoagulation therapy. Plan: Will obtain venous duplex for further evaluation. Will call patient with results. Other pulmonary embolism and infarction 06/26/20 12 Immunizations Immunization Administration Dates Next Due Influenza, Quadrivalent, Rec ombinant, Egg Free, Preservative Free, Intramuscular 06/29/2021 Influenza, Quadrivalent, Spl it, Preservative Free, Intramuscular 05/26/2022,06/12/2020 Influenza, Trivalent, Preservative Free, Intramu scular 06/22/2017 Tdap 10/02/2014 Surgical History Surgery Date Site/Laterality Comments COLONOSCOPY 08/14/2013 - 08/13/2014 MENISCUS SURGERY Right meniscus repair INSERT VENA CAVA FILTER VASECTOMY Medical History Medical History Date Comments No pertinent past medical history Family History Medical History Relation Name Comments Diabetes Father Hodgkin's lymphoma Father Hypertension Mother Relation Name Status Comments Father Mother Social History Tobacco Use Types Packs/Day Years Used Date Smoking Tobacco: Never Assessed Sex and Gender Information Value Date Recorded Sex Assigned at Not on file Legal Sex Male 4:34 AM AQUATICS SPECIALIST Gender Identity Not on file Sexual Orientation Not on file Obstetrics History Last Filed Vital Signs Vital Sign Reading Time Taken Comments Blood Pressure 127/82 06/23/2022 8:41 AM AQUATICS SPECIALIST Pulse 73 06/23/2022 8:41 AM AQUATICS SPECIALIST Temperature - - Respiratory Rate - - Oxygen Saturation - - Inhaled Oxygen Concentration - - Weight - - Height 182.9 cm (6') 06/23/2022 8:41 AM AQUATICS SPECIALIST Body Mass Index - - Plan of Treatment Health Maintenance Due Date Last Done Comments Colon Cancer Screening-Colonoscopy 1978 Depression Screening 1978 Hepatitis C Screening 1978 Hepatitis B Screening 1996 Regular Well Visit/Exam 18-64 1996 Covid-19 Vaccine (3 - 2023- season) 2024 12/15/2020, 11/24/2020 Influenza Vaccine (#1) 2024 , 06/29/2021, 06/12/2020, Additional history exists DTaP/Tdap/Td Vaccine (2 - Td or Tdap) 10/02/2024 10/02/2014 HPV Vaccines Aged Out No longer eligi ble based on patient's age to complete this topic Pneumococcal vaccine <65 Aged Out No longer eligible based on patient's age to complete this topic Insurance [employer] OOS Segway OOS Member Subscriber Plan / Payer (Ef fective 2019-Present) Name:Ciaran Hoffman Relation to Subscriber:Self Name:Ciaran Hoffman Payer ID:[id number] (NAIC) Type:NTB Media Address: [address] [place] [id number] Care Teams Veterinarian Poultry Relationship Specialty Start Date End Date Baljeet Biswas MD PCP - General Family Medicine 06/20/22
--- OUTSIDE RECORDS SUMMARY | 2024-12-19 18:21 | XMS_ITS | Clinical Summary ---
Author Organization [facility] Address [address] [place] [address] Care Team Providers Care Chemical Preparer Name Role Phone Unavailable Primary Care Provider Unavailabl e Social History Tobacco Use Types Packs/Day Years Used Date Smoking Tobacco: Never Assessed Sex and Gender Information Value Date Recorded Sex Assigned at Not on file Legal Sex Male 7:34 PM CDT Gender Identity Not on file Sexual Orientation Not on file Last Filed Vital Signs Vital Sign Reading Time Taken Comments Blood Pressure 152/82 10/05/2010 8:30 AM ASSISTANT COUNTY ENGINEER Pulse 95 10/05/2010 8:30 AM ASSISTANT COUNTY ENGINEER Temperature - - Respiratory Rate - - Oxygen Saturation - - Inhaled Oxygen Concentration - - Weight 129.3 kg (285 lb) 10/05/2010 8:30 AM ASSISTANT COUNTY ENGINEER Height 184.8 cm (6' 0.75 ) 10/05/2010 8:30 AM CS T Body Mass Index 37.86 10/05/2010 8:30 AM ASSISTANT COUNTY ENGINEER Plan of Treatment Health Maintenance Due Date Last Done Comments Colorectal Cancer Screening Colonoscopy (10 Years) 1978 Annual Physical 1981 Hepatitis C 1996 DTaP, Tdap and Td Vaccines ( 1 - Tdap) 1997 Hepatitis B Vaccines (1 of 3 - 19+ 3-dose series) 1997 COVID-19 Vaccine (2023-2 5 season) 2024 Meningococcal B Vaccine Aged Out No l onger eligible based on patient's age to complete this topic Meningococcal Vaccine Aged Out No christa selina eligible based on patient's age to complete this topic Pneumococcal Vaccine: Pediat rics (0 to 5 Years) and At-Risk Patients (6 to 49 Years) Aged Out No longer eligible b ased on patient's age to complete this topic RSV Immunizations Under 20 Months Aged Out No longer eligible based on patient's age to complete this topic
--- OUTSIDE RECORDS SUMMARY | 2024-12-19 18:21 | XMS_ITS | Clinical Summary ---
Author Organization [facility] Address [address] [place] [address] Care Team Providers Care Lock And Dam Repairer Name Role Phone Baljeet Biswas MD Primary Care Provider [phone] Source Comments [facility],non-owned Affiliates and Associated Physician Practices is amultiple site organization consisting of ambulatory clinics and hospital sitesin [place], [place], [place] and [place]. This disclosure is being madepursuant to the Care Everywhere program and may not contain all information available regarding this patient. Last updated 18.[facility] Medications * Be aware that medications may not be up to date on this document. Alwaysverify current medications with the patient. warfarin (COUMADIN) 5 MG tablet Take 7.5-10 mg by mouth as directed. 10 mg MF, 7.5 mg other days - Begin to hold 12/28 - restart per Dr. Wen Active aspirin EC (ECOTRIN) 325 MG tablet Take 325 mg by mouth once daily. Active Resolved Problems Problem Noted Date Diagnosed Date Resolved Date longterm current use of ant icoagulant therapy 08/22/2012 02/20/2013 Overview (05/14/2015): DVT (deep venous thrombosis) 07/09/2012 02/20/2013 Social History Tobacco Use Types Packs/Day Years Used Date Smoking Tobacco: Never Assessed Sex and Gender Information Value Date Recorded Sex Assigned at Not on file Legal Sex Male 11:32 AM DIALER Gender Identity Not on file Sexual Orientation Not on file Plan of Treatment Health Maintenance Due Date Last Done Comments COLOGUARD (AGES 45-75) - COL ON CA SCREENING 1978 COLON MONITORING 1978 COLONOSCOPY - COLON CA SCREENING 1978 CT COLONOGRAPHY - COLON CA SCREENING 1978 Colorectal Cancer Screening 1978 FIT - COLON CA SCREENING 1978 FLEX SIG - COLON CA SCREENING 1978 LIPID TESTING 1978 HIV SCREENING 1993 HEPATITIS C SCREENING 08/30/1996 DTAP/TDAP/TD VACCINES (1 - Tdap) 1997 HEPATITIS B VACCINE (1 of 3 - 19+ 3-dose series) 1997 COVID-19 VACCINE (1 - 2023-2 5 season) 2024 DEPRESSION SCREENING 08/14/2024 INFLUENZA VACCINE (Season Ended) 2025 ZOSTER VACCINE (1 of 2) 2028 HIB VACCINE Aged Out No longer eligi ble based on patient's age to complete this topic HPV VACCINE Aged Out No longer eligi ble based on patient's age to complete this topic MENINGOCOCCAL (Group B) VACC INE SHARED DECISION-MAKING Aged Out No longer eligibl e based on patient's age to complete this topic MENINGOCOCCAL GROUPS A/C/Y/W VACCINE Aged Out No longer eligible b ased on patient's age to complete this topic PNEUMOCOCCAL VACCINE Aged Out No long er eligible based on patient's age to complete this topic Insurance [facility] * Guarantor: AWILDA ADDISON Account Type Relation to Patient Date of Phone Billing Address Personal/Family Other * Guarantor: AWILDA ADDISON Account Type Relation to Patient Date of Phone Billing Address Personal/Family Other * Guarantor: AWILDA ADDISON Account Type Relation to Patient Date of Phone Billing Address Personal/Family Other * Guarantor: AWILDA ADDISON Account Type Relation to Patient Date of Phone Billing Address Personal/Family Other Care Teams Lock And Dam Repairer Relationship Specialty Start Date End Date Baljeet Biswas MD [address] [place] [id number] PCP - General 03/29/22
--- OUTSIDE RECORDS SUMMARY | 2024-12-19 18:22 | XMS_ITS | Referral Summary ---
Author Organization [facility] ([facility] Address [address] [place] [address] Care Team Providers Care Account Director Name Role Phone Baljeet Biswas MD Primary Care Provider [phone] Allergies Active Allergy Reactions Criticality Noted Date [...] Problem Noted Date Diagnosed Date Atherosclerosis of [place] of both lower extremities with intermittent claudication 06/23/2022 Assessment & Plan (06/23/2022 4:58 PM FERRYBOAT OPERATOR HELPER): Impression: Patient complains of calf tightness to [...] 5 Assessment & Plan (06/23/2022 5:02 PM FERRYBOAT OPERATOR HELPER): Impression: Patient has a history of a right lower extremity DVT in 2011. Also diagnosed with factor 5 Leiden mutation. Patient reports he is currently not on any anticoagulation therapy. Plan: Recommend anticoagulation therapy with patient's history of Factor 5 Leiden. Will defer patient to primary care provider for management. DVT (deep venous thrombosis) 06/26/2012 Assessment & Plan (06/23/2022 5:01 PM FERRYBOAT OPERATOR HELPER): Impression: Patient has a history of DVT [...] Preservative Free, Intramu scular 06/22/2017 Tdap 10/02/2014 Social History Tobacco Use Types Packs/Day Years Used Date Smoking Tobacco: Never Assessed Sex and Gender Information Value Date Recorded Sex Assigned at Not on file Legal Sex Male 4:34 AM FERRYBOAT OPERATOR HELPER Gender Identity Not on file Sexual Orientation Not on file Last Filed Vital Signs Vital Sign Reading Time Taken Comments Blood Pressure 127/82 06/23/2022 8:41 AM FERRYBOAT OPERATOR HELPER Pulse 73 06/23/2022 8:41 AM FERRYBOAT OPERATOR HELPER Temperature - - Respiratory Rate - - Oxygen Saturation - - Inhaled Oxygen Concentration - - Weight - - Height 182.9 cm (6') 06/23/2022 8:41 AM FERRYBOAT OPERATOR HELPER Body Mass Index - - Plan of Treatment Not on file Insurance [facility] OOS Care Teams Account Director Relationship Specialty Start Date End Date Baljeet Biswas MD PCP - General Family Medicine 06/20/22
[2024-12-19 18:24] VITALS: BP 142/70; PULSE 81; RESP 16; TEMP 36.2; O2SAT 98
--- OUTSIDE RECORDS SUMMARY | 2024-12-19 19:21 | XMS_ITS | Clinical Summary ---
Author Organization [facility] Address [address] [place] [address] Care Team Providers Care Classroom Paraprofessional Name Role Phone Baljeet Biswas MD Primary Care Provider [phone] Source Comments [facility],non-owned Affiliates and Associated Physician Practices is amultiple site organization consisting of ambulatory clinics and hospital sitesin [place], [place], [place] and [place]. This disclosure is being madepursuant to the Care Everywhere program and may not contain all information available regarding this patient. Last updated 18.[facility] Medications * Be aware that medications may [...] Problem Noted Date Diagnosed Date Resolved Date jail current use of ant icoagulant therapy 08/22/2012 02/20/2013 Overview (05/14/2015): DVT (deep venous thrombosis) 07/09/2012 02/20/2013 Social History Tobacco Use Types Packs/Day Years Used Date Smoking Tobacco: Never Assessed Sex and Gender Information Value Date Recorded Sex Assigned at Not on file Legal Sex Male 11:32 AM OSD CLERK Gender Identity Not on file Sexual Orientation [...] patient's age to complete this topic Insurance [facility] * Guarantor: AWILDA ADDISON Account Type [...] Phone Billing Address Personal/Family Other Care Teams Classroom Paraprofessional Relationship Specialty Start Date End Date Baljeet Biswas MD [address] [place] [id number] PCP - General 03/29/22
--- OUTSIDE RECORDS SUMMARY | 2024-12-19 19:21 | XMS_ITS | Clinical Summary ---
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 Gender Identity Not on file Sexual Orientation [...] this topic Medical Devices Implanted Type Area Inseam Leveler Device Identifier Shelf Expiration Date Model / Serial / Lot Fltr [place] Vena Cava Fem [id number] - [id number] Implanted:Qty: 1 on 06/29/2012 by Oseas Calderon MD at [facility] Catheter N/A: Vena Cava CR [employer]ARD[employer] 02/10/2013 [id number] / / [id number] Insurance RX [facility] [employer] Advance Directives For more information, please contact: [phone] * Full Code (Latest Code Status on File) Date Activated Date Inactivated Comments 10/26/2012 10:40 AM 10/26/2012 2:33 PM * Full Code Date Activated Date Inactivated Comments 10/26/2012 8:00 AM 10/26/2012 10:40 AM * Full Code Date Activated Date Inactivated Comments 06/29/2012 11:29 AM 06/29/2012 3:52 PM * Full Code Date Activated Date Inactivated Comments 06/29/2012 8:00 AM 06/29/2012 11:29 AM Care Teams Tobacco Classer Relationship Specialty Start Date End Date Alfredo Hoffman MD PCP - General Family Practice 10/21/11
--- OUTSIDE RECORDS SUMMARY | 2024-12-19 19:21 | XMS_ITS | Continuity of Care Document ---
Author Organization [facility] Address [address] [place] [address] [address] [place] [address] Phone Care Team Providers Care Rod Bending Machine Operator Name Role Phone Saldana Love WILCOX Unavailable [...] Diagnoses Date Provider Providers Copied on Encounter [facility], [place], [place], [id number], [place] tel:[phone] [facility] tear of medial meniscus, current injury, r knee, subsPain in right kneePain in left knee 8 Les Aleman. [address] [facility], [address], [place], [address], [place]. tel:[phone] [facility], [place], [place], [id number], tel:[phone] [facility] tear of medial meniscus, current injury, r knee, subsPain in right kneePain in left knee 8 Les Aleman. [address] [facility], [address], [place], [address], [place]. tel:[phone] [facility], [place], [place], [address], [place] tel:[phone] [facility] tear of medial meniscus, current injury, r knee, subsPain in right kneePain in left knee 8 Les Aleman. [address] [facility], [address], [place], [address], [place]. tel:[phone] [facility], [place], [place], [address], [place] tel:[phone] [facility] tear of medial meniscus, current injury, r knee, subsPain in right kneePain in left knee Nov-2 8 Les Aleman. [address] [facility], [address], [place], [address], [place]. tel:[phone] [facility], [place], [place], [address], [place] tel:[phone] [facility] [place] [facility] tear of medial meniscus, current injury, r knee, subsPain in right kneePain in left knee 8 Les Aleman. [address] [facility], [address], [place], [address], [place]. tel:[phone] [facility], [place], [place], [address], [place] tel:[phone] [facility] [place] [facility] tear of medial meniscus, current injury, r knee, subsPain in right kneePain in left knee Nov- 8 Les Aleman. [address] [facility], [address], [place], [address], [place]. tel:[phone] [facility], [place], [place], [address], [place] tel:[phone] [facility] tear of medial meniscus, current injury, r knee, subsPain in right kneePain in left knee Apr-1 2-201 8 Les Aleman. [address] [facility], [address], [place], [address], [place]. tel:[phone] [facility], [place], [place], [address], [place] tel:[phone] [facility] [place] [facility] tear of medial meniscus, current injury, r knee, subsPain in right kneePain in left knee Apr-1 0-201 8 Les Aleman. [address] [facility], [address], [place], [address], [place]. tel:[phone] [facility], [place], [place], [address], [place] tel:[phone] [facility] [place] [facility] tear of medial meniscus, current injury, r knee, subsPain in right kneePain in left knee Apr-0 6-201 8 Les Aleman. [address] [facility], [address], [place], [address], [place]. tel:[phone] [facility], [place], [place], [address], [place] tel:[phone] [facility] No Information December-2 3-201 6 [place] Sushil. [address] [place] [address], [address], [place], [address], [place]. tel:[phone] [facility], [place], [place], [address], [place] tel:[phone] [facility] [place] No Information December-1 2-201 6 [place] Sushil. [address] [place] [address], [address], [place], [address], [place]. tel:[phone] [facility], [place], [place], [address], [place] tel:[phone] [facility] [place] No Information December-0 9-201 6 [place] Sushil. [address] [facility], [address], [place], [address], [place]. tel:[phone] [place] [address], [address], [place], [place], [address], [place] tel:[phone] [facility] [place] No Information May-0 5-201 6 [place] Sushil. [address] [place] [address], [address], [place], [address], [place]. tel:[phone] [place] [address], [address], [place], [place], [address], [place] tel:[phone] [facility] [place] No Information May-0 3-201 6 [place] Sushil. [address] [place] [address], [address], [place], [address], [place]. tel:[phone] [place] [address] [facility] [address], [place], [place], [address], [place] tel:[phone] [facility] [place] No Information Apr-2 8-201 6 [place] Sushil. [address] [place] [address], [address], [place], [address], [place]. tel:[phone] [facility], [place], [place], [address], [place] tel:[phone] [facility] [place] No Information Apr-2 6-201 6 [place] Sushil. [address] [place] [address], [address], [place], [address], [place]. tel:[phone] [place] [address] [address], [place], [place], [address], [place] tel:[phone] [facility] [place] No Information Dec-0 3-201 5 Argueta Dinorah. [address] [place] [address], [address], [place], [address], [place]. tel:[phone] [facility], [address], [place], [place], [address], [place] tel:[phone] [facility] [place] No Information Dec-0 1-201 5 Argueta Dinorah. [address] [facility], [address], [place], [address], [place]. tel:[phone] [facility] [place] [facility] [address], [place], [place], [address], [place] tel:[phone] [facility] [place] Effusion, left kneeStiffness of left knee, not elsewhere classifiedOther abnormalities of gait and mobilityOth tear of medial meniscus, current injury, left knee, subs Nov- Argueta Dinorah. [address] [facility], [address], [place], [address], [place]. tel:[phone] Family History Family Member Type Diagnosis Age At Onset No Information Payers Payer name Insurance type Covered libertarian ID Hannah yeh(s) [facility] CI [id number] Social History Type Description Quantity Date Captured [...]
--- OUTSIDE RECORDS SUMMARY | 2024-12-19 19:21 | XMS_ITS | Clinical Summary ---
Author Organization [facility] Address [address] [place] [address] Care Team Providers Care Manager Special Events Name Role Phone Unavailable Primary Care Provider [...] Comments Blood Pressure 152/82 10/05/2010 8:30 AM GUN BARREL FINISHER Pulse 95 10/05/2010 8:30 AM GUN BARREL FINISHER Temperature - - Respiratory Rate - - Oxygen Saturation - - Inhaled Oxygen Concentration - - Weight 129.3 kg (285 lb) 10/05/2010 8:30 AM GUN BARREL FINISHER Height 184.8 cm (6' 0.75 ) 10/05/2010 8:30 AM CS T Body Mass Index 37.86 10/05/2010 8:30 AM GUN BARREL FINISHER Plan of Treatment Health Maintenance Due Date [...]
[2024-12-19 19:29] LABS: Basophils Percent Auto 0.2 % (0.2-1.2); Eosinophils Absolute Auto 0.3 K/mm3 (0-0.3); Eosinophils Percent Auto 3.3 % (0-4.4); Hematocrit 41.4 % (42.0-52.0); Hemoglobin 14.1 g/dL (14.0-18.0); Immature Granulocyte Absolute 0.02 K/mm3 (0.00-0.031); Immature Granulocyte Percent A 0.2 % (0-0.5); Lymphocytes Absolute Auto 2.66 K/mm3 (0.9-3.2); Lymphocytes Percent Auto 29.1 % (18.3-44.2); Mean Corpuscular HGB Conc 34.1 g/dl (32-36); Mean Corpuscular Hemoglobin 29.3 pg (26-34); Mean Corpuscular Volume 86.1 fl (80-100); Mean Platelet Volume 9.3 fl (7.4-10.4); Monocytes Absolute Auto 0.7 K/mm3 (0.1-0.6); Neutrophils Absolute Auto 5.4 K/mm3 (1.3-6.7); Neutrophils Percent Auto 59.2 % (45.5-73.1); Platelet Count Result 206 k/mm3 (150-375); Red Blood Count 4.81 M/mm3 (4.6-6.20); Red Cell Distribution Width 12.5 % (11.5-14.5); White Blood Count 9.2 K/mm3 (4.5-10.0)
[2024-12-19 19:41] LABS: Prothrombin Time 13.8 Seconds (11.1-14.7)
--- NOTE | 2024-12-19 19:55 | ED_ITS ---
HPI - Extremity Problem General Chief complaint: Extremity Problem,Nontraumatic Stated complaint: LLE pain and swelling Time Seen by Provider: 12/19/24 18:56 Source: patient Mode of arrival: ambulatory Limitations: no limitations History of Present Illness HPI Narrative: This is a 44-year-old male, with history of factor 5 Leiden who presents to the emergency department complaining of left lower extremity swelling for the past 2 days. The patient denies any known trauma, fevers, chills, palpitations, shortness of breath, lightheadedness, chest pain or right lower extremity swelling. He states he did travel for greater than 4 hours by car in the past 4 days. He states he has taken full-dose aspirin daily without missed doses. He denies bleeding of any kind, recent head injury, intracranial surgery, or upcoming major surgery. He has no other complaints at this time. Related Data Home Medications ?Medication ?Instructions ?Recorded ?Confirmed ?Last Taken ?Type terbinafine HCl 250 mg tablet 250 mg PO DAILY PRN 09/25/24 09/25/24 Unknown History Allergies Allergy/AdvReac Type Severity Reaction Status Date / Time cefazolin (From Anc) Allergy Mild Rash Verified 09/25/24 07:41 Review of Systems 2 Review of Systems: All systems reviewed & are unremarkable except as noted in HPI and below PMFSH Past Medical History Medical History Eustachian tube dysfunction Acute frontal sinusitis Obstructive sleep apnea Daytime sleepiness Elevated WBC count Biliary colic Screening for thyroid disorder Screening for malignant neoplasm of prostate Screening cholesterol level Screening for diabetes mellitus Torsion of testicle Factor 5 Leiden mutation, heterozygous Surgical History Surgical History H/O vasectomy H/O superior vena cava filter placement History of medial meniscus repair of left knee H/O medial meniscus repair of right knee Family History Family History Father Diabetes mellitus Non Hodgkin's lymphoma Mother Hypertension Sibling No problems noted. 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 HEAD: Normocephalic, atraumatic. EYES: PERRLA and EOMI. NECK: Supple. No adenopathy or masses. No carotid bruits or JVD CHEST: Clear to auscultation. No respiratory distress. No wheezes rales or rhonchi HEART: Regular rate and rhythm. No murmur heard. Normal peripheral pulses. ABDOMEN: Soft, nontender, nondistended, normal active bowel sounds. EXTREMITIES: Left lower extremity edema 2+ extending to the knee with mild diffuse erythema. No significant swelling or erythema of the right lower extremity. Normal range of motion. SKIN: Warm, dry, no rash. NEURO: Alert and oriented x3. No focal deficit. Moving all 4 limbs spontaneously PSYCH: Normal mood and affect. Course Course Emergency Course: 19:58 - DVT noted on ultrasound of the left lower extremity extending from the posterior tibial, peroneal and popliteal veins. There is no noted DVT in the femoral veins or the saphenous vein. CBC within normal limits, platelets within normal limits. Coagulation studies normal. Will start the patient on Eliquis. I advised the patient to stop taking his aspirin while on Eliquis until speaking with his primary care doctor. I discussed the findings and recommendations with the patient and spouse. Discussed return and emergency precautions including signs/symptoms of intracranial hemorrhage, PE and ACS. The patient and his spouse voiced understanding and agreement with the plan. All questions answered to their satisfaction. Vital Signs Vital signs: Vital Signs Temperature 97.1 F L 12/19/24 18:24 Pulse Rate 81 12/19/24 18:24 Respiratory Rate 16 12/19/24 18:24 Blood Pressure 142/70 H 12/19/24 18:24 Pulse Oximetry 98 12/19/24 18:24 Temperature 97.8 F 12/19/24 20:40 Pulse Rate 68 12/19/24 20:40 Respiratory Rate 16 12/19/24 20:40 Blood Pressure 138/76 12/19/24 20:40 Pulse Oximetry 97 12/19/24 20:40 MDM - Extremity (Nontraumatic) MDM Narrative Medical decision making narrative: Plan: Labs, ultrasound, reassess Differential Diagnosis Differential diagnosis: Likely cellulitis, deep vein thrombosis of lower extremity and other (Coagulopathy, anemia, metabolic abnormality, other) Lab Data 12/19/24 19:14 Labs: Lab Results 12/19/24 Range/Units 19:14 WBC 9.2 (4.5-10.0) K/mm3 RBC 4.81 (4.6-6.20) M/mm3 Hgb 14.1 (14.0-18.0) g/dL Hct 41.4 L (42.0-52.0) % MCV 86.1 (80-100) fl MCH 29.3 (26-34) pg MCHC 34.1 (32-36) g/dl RDW 12.5 (11.5-14.5) % Plt Count 206 (150-375) k/mm3 MPV 9.3 (7.4-10.4) fl Immature Gran % (Auto) 0.2 (0-0.5) % Neut % (Auto) 59.2 (45.5-73.1) % Lymph % (Auto) 29.1 (18.3-44.2) % [place] % (Auto) 8.0 (2.6-8.5) % Eos % (Auto) 3.3 (0-4.4) % Baso % (Auto) 0.2 (0.2-1.2) % Lymph # (Auto) 2.66 (0.9-3.2) K/mm3 [place] # (Auto) 0.7 H (0.1-0.6) K/mm3 Eos # (Auto) 0.3 (0-0.3) K/mm3 Baso # (Auto) 0.0 (0.0-0.1) K/mm3 Abs Immat Gran (auto) 0.02 (0.00-0.031) K/mm3 Absolute Neuts (auto) 5.4 (1.3-6.7) K/mm3 Absolute Nucleated RBC 0.000 (0.0-0.012) K/mm3 Nucleated RBC % 0.0 (0.0-0.2) % PT 13.8 (11.1-14.7) Seconds INR 1.0 APTT 26.8 (22.3-36.8) Seconds Discharge Plan Discharge Clinical Impression: Left leg swelling Acute deep vein thrombosis (DVT) of left lower extremity Qualifiers: Affected thrombotic vein of extremity: peroneal Qualified Code(s): I82.452 - Acute embolism and thrombosis of left peroneal vein Patient Disposition: Home Condition: Stable Instructions: Antibiotic Form, Deep Vein Thrombosis (ED) Additional Instructions: You were seen in the emergency department. Ultrasound of the left leg showed a DVT in the popliteal, peroneal and posterior tibial veins. I recommend resuming Eliquis and following up with your primary care doctor. If you develop chest pain, shortness of breath, loss of consciousness, and series bleeding, or if you have other emergent concerns for life, limb, or eyesight, return to the emergency department. Patient Language: Taiwanese Prescriptions: New Eliquis DVT-PE Treat 30D Start 5 mg (74 tabs) tablets,dose pack See Rx Instructions .ROUTE .COMPLEX Qty: 74 0RF Rx Instructions: orally per package directions Discontinued aspirin 325 mg tablet 325 mg PO DAILY No Action terbinafine HCl 250 mg tablet 250 mg PO DAILY PRN Rx Instructions: confirmed with podiatry for chronic use up to 9mo lisinopril 10 mg tablet 10 mg PO DAILY Qty: 90 3RF Follow-up/Referrals: Baljeet Biswas MD [Primary Care Provider] - 1 Week Time of Disposition: 19:58
[2024-12-19 20:27] LABS: Partial Thromboplastin Time 26.8 Seconds (22.3-36.8)
[2024-12-19] MEDS: APIXABAN 5 MG TABLET PO (20:35)
[2024-12-19 20:40] VITALS: BP 138/76; PULSE 68; RESP 16; TEMP 36.6; O2SAT 97
== END 2024-12-19 20:41 | disposition home or self-care (01) ==
PROVIDERS: Student in an Organized Health Care Education/Training Program; Emergency Provider Preventive Medicine Aerospace Medicine; PCP Family Medicine
DX: I82.452 Acute embolism and thrombosis of left peroneal vein (principal); D68.51 Activated protein C resistance; G47.33 Obstructive sleep apnea (adult) (pediatric); Z79.899 Other long term (current) drug therapy
CPT/HCPCS: 36415; 85025; 85610; 85730; 93971; 99284; A9270

== ENCOUNTER 2025-03-26 10:00 | Outpatient (CLI) | payer BC, SELFPAY ==
--- NOTE | ~2025-03-26 | US_ITS ---
EXAMINATION:US venous doppler LE LT INDICATION:DVT of the left peroneal vein TECHNIQUE: Multiple grayscale, color flow and Doppler images of the left lower extremity deep venous systems were obtained and reviewed. COMPARISON:Left lower extremity venous Doppler dated 12/19/2024 FINDINGS: The common femoral, superficial femoral veins demonstrate normal respiratory variation, aug mentation and compressibility. Color flow is also seen within the posterior tibial, peroneal, greate r saphenous and profunda veins. There is persistent chronic deep venous thrombosis of the left poplit eal vein. IMPRESSION: 1: Persistent chronic deep venous thrombosis of the left popliteal vein. Reviewed, dictated and finalized at location A.
--- OUTSIDE RECORDS SUMMARY | 2025-03-26 10:18 | XMS_ITS | Encounter Summary ---
Author Organization [facility] [employer] [facility] Address [address] [place] [address] Care Team Providers Care Lead Refiner Name Role Phone Alfredo Hoffman MD Primary Care Provider [phone] Reason for Referral * Radiology Services (Routine) - Authorized Specialty Diagnoses / Procedures Referred By Contac t Referred To Contact Diagnoses Acute deep vein thrombosis (DVT) of left peroneal vein (CMS/HCC) Procedures US VENOUS DOPPLER LEG LEFT Geremias Wagner MD [address] [place] [address] Phone: tel: fax: [place] [phone] Referral ID Status Reason Start Date Expiration Date V isits Requested Visits Authorized [id number] Authorized [facility] CTS 03/26/2025 04/26/2026 1 1 Encounter Details Date Type Department Care Team (Late st Contact Info) Description 03/26/2025 Orders Only [facility] Oncology and Hematology [facility] [address] [place] [address] Geremias Wagner MD [address] [place] [address] Acute deep vein thrombosis (DVT) of left peroneal vein (CMS/HCC) (Primary Dx) Social History Tobacco Use Types Packs/Day Years Used Date Smoking Tobacco: Never Smokeless Tobacco: Never Alcohol Use Standard Drinks/Week Comments Yes 5.8 (1 standard drink = 0.6 oz p ure alcohol) occasional Sex and Gender Information Value Date Recorded Sex Assigned at Not on file Legal Sex Male 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 Gender Identity Not on file Sexual Orientation Not on file Occupation Industry Job Start Date Job End Date Not on file Not on file Not on file Not on file documented as of this encounter Plan of Treatment Upcoming Encounters Date Type Department Care Team (Late st Contact Info) Description 04/02/2025 4:30 PM CDT Telephone Check Up [facility] Oncology and Hematology - [address] [facility] [address] [place] [address] Geremias Wagner MD [address] [facility] [address] [place] [address] Scheduled Orders Name Type Priority Associated Diagnoses Orde r Schedule US VENOUS DOPPLER LEG LEFT Imaging Routine Acute deep vein thrombosis (DVT) of left peroneal vein (CMS/HCC) Expected: 03/26/2025, Expires: 03/26/2026 documented as of this encounter Visit Diagnoses Diagnosis Acute deep vein thrombosis (DVT) of left peroneal vein (CMS/HCC)- Primary documented in this encounter Care Teams Lead Refiner Relationship Specialty Start Date End Date Alfredo oHffman MD PCP - General Family Practice 10/21/11 documented as of this encounter
--- OUTSIDE RECORDS SUMMARY | 2025-03-26 10:18 | XMS_ITS | Clinical Summary ---
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 Also diagnosed with factor 5 Leiden mutation. Patient reports he is currently not on any anticoagulation therapy. Plan: Recommend anticoagulation therapy with patient's history of Factor 5 Leiden. Will defer patient to primary care provider for management. DVT (deep venous thrombosis) 06/26/2012 Assessment & Plan (06/23/2022 5:01 PM INWARD TOLL OPERATOR): Impression: Patient has a history of DVT [...] on file Legal Sex Male 4:34 AM INWARD TOLL OPERATOR Gender Identity Not on file Sexual Orientation Not on file Obstetrics History Last Filed Vital Signs Vital Sign Reading Time Taken Comments Blood Pressure 127/82 06/23/2022 8:41 AM INWARD TOLL OPERATOR Pulse 73 06/23/2022 8:41 AM INWARD TOLL OPERATOR Temperature - - Respiratory Rate - - Oxygen Saturation - - Inhaled Oxygen Concentration - - Weight - - Height 182.9 cm (6') 06/23/2022 8:41 AM INWARD TOLL OPERATOR Body Mass Index - - Plan of Treatment Health Maintenance Due Date Last Done Comments Colon Cancer Screening-Colonoscopy 1978 Depression Screening 1978 Hepatitis C Screening 1978 Hepatitis B Screening 1996 Regular Well Visit/Exam 18-64 1996 Covid-19 Vaccine (3 - 2023- season) 2024 12/15/2020, 11/24/2020 DTaP/Tdap/Td Vaccine (2 - Td or Tdap) 10/02/2024 10/02/2014 Influenza Vaccine (#1) 2025 , 06/29/2021, 06/12/2020, Additional history exists HPV Vaccines Aged Out No longer eligi ble based on patient's age to complete this topic Pneumococcal vaccine <65 Aged Out No longer eligible based on patient's age to complete this topic Insurance [employer] OOS [employer] OOS Member Subscriber Plan / Payer (Ef fective 2019-Present) Name:Ciaran Hoffman Relation to Subscriber:Self Name:Ciaran Hoffman Payer ID:[id number] (NAIC) Type:ChemDAQ Address: [address] [place] [id number] Care Teams Lab Asst Relationship Specialty Start Date End Date Baljeet Biswas MD PCP - General Family Medicine 06/20/22
--- OUTSIDE RECORDS SUMMARY | 2025-03-26 10:18 | XMS_ITS | Clinical Summary ---
Author Organization [facility] Address [address] [place] [address] Care Team Providers Care Family Literacy Coordinator Name Role Phone Baljeet Biswas MD Primary Care Provider [phone] Source Comments [facility],non-owned Affiliates and Associated Physician Practices is amultiple site organization consisting of ambulatory clinics and hospital sitesin [place], [place], [place] and [place]. This disclosure is being madepursuant to the Care Everywhere program and may not contain all information available regarding this patient. Last updated 18.[facility] Medications * Be aware that medications may [...] on file Legal Sex Male 11:32 AM CARD HAND Gender Identity Not on file Sexual Orientation [...] season) 2024 DEPRESSION SCREENING 08/14/2024 INFLUENZA VACCINE (#1) 2025 ZOSTER VACCINE (1 of 2) 2028 [...] patient's age to complete this topic Insurance [facility] * Guarantor: AWILDA ADDISON Account Type Relation [...] Phone Billing Address Personal/Family Other Care Teams Family Literacy Coordinator Relationship Specialty Start Date End Date Baljeet Biswas MD [address] [place] [id number] PCP - General 03/29/22
--- OUTSIDE RECORDS SUMMARY | 2025-03-26 10:18 | XMS_ITS | Clinical Summary ---
Author Organization [facility] Address [address] [place] [address] Care Team Providers Care Outpatient Physical Therapist Assistant Name Role Phone Unavailable Primary Care Provider [...] Comments Blood Pressure 152/82 10/05/2010 8:30 AM INCLUSION SPECIALIST Pulse 95 10/05/2010 8:30 AM INCLUSION SPECIALIST Temperature - - Respiratory Rate - - Oxygen Saturation - - Inhaled Oxygen Concentration - - Weight 129.3 kg (285 lb) 10/05/2010 8:30 AM INCLUSION SPECIALIST Height 184.8 cm (6' 0.75) 10/05/2010 8:30 AM CS T Body Mass Index 37.86 10/05/2010 8:30 AM INCLUSION SPECIALIST Plan of Treatment Health Maintenance Due Date [...]
--- OUTSIDE RECORDS SUMMARY | 2025-03-26 10:18 | XMS_ITS | Clinical Summary ---
Author Organization [facility] en Address [address] [place] [address] Care Team Providers Care Senior Litigation Paralegal Name Role Phone Alfredo Hoffman MD Primary Care Provider Allergies Active Allergy Reactions Criticality Noted Date Comments Cefazolin Rash Low 07/02/2012 Medications apixaban (Eliquis) 5 mg tablet Take 5 mg by mouth 2 times daily. Active terbinafine HCL (LamISIL) 250 mg tablet Take 250 mg by mouth daily. Active lisinopriL (PRINIVIL) 10 mg tablet Take 1 Tablet by mouth daily. 01/13/2025 Active Active Problems Problem Noted Date Diagnosed Date Factor 5 Leiden mutation, heterozygous 5 DVT (deep venous thrombosis) 06/26/2012 Other pulmonary embolism and infarction 06/26/20 12 Resolved Problems Problem Noted Date Diagnosed Date Resolved Date Acute frontal sinusitis 04/12/201603/16 Encounters Date Type Department Care Team Description 03/26/2025 Orders Only [facility] Oncology and Hematology - [address] [place] [address] Geremias Wagner MD Acute deep vein thrombosis (DVT) of left peroneal vein (CMS/HCC) (Primary Dx) 02/19/2025 3:00 PM CDT Office Visit [facility] Oncology and Hematology - [address] [place] [address] Geremias Wagner MD Acute deep vein thrombosis (DVT) of left peroneal vein (CMS/HCC) (Primary Dx) 01/14/2025 External Device Data STL ABSTRACTION Provider, Abstract 01/02/2025 External Device Data STL ABSTRACTION Provider, Abstract 01/01/2025 External Device Data STL ABSTRACTION Provider, Abstract 12/31/2024 External Device Data STL ABSTRACTION Provider, Abstract from Last 3 Months Immunizations Immunization Administration Dates Next Due (ADACEL/BOOSTRIX)(10 YR UP) TDAP VACCINE, 0.5ML, IM 10/02/2014 INFLUENZA VACCINE TRIVALENT SPLIT VIRUS, (6 MOS UP), 0.5ML (PF), IM 07/26/2024 Family History Medical History Relation Name Comments No Known Problems Brother No Known Problems Child 1 No Known Problems Child 2 Diabetes Father Hodgkin's lymphoma Father Hypertension Maternal Grandfather Stroke Maternal Grandfather No Known Problems Mother No Known Problems Sister 1 Relation Name Status Comments Brother Alive Child 1 Alive Child 2 Alive Father Alive Maternal Grandfather Mother Alive Sister 1 Alive Sister 2 Alive Social History Tobacco Use Types Packs/Day Years Used Date Smoking Tobacco: Never Smokeless Tobacco: Never Tobacco Cessation:Counseling Given: Not Answered Alcohol Use Standard Drinks/Week Comments Yes 5.8 (1 standard drink = 0.6 oz p ure alcohol) occasional Sex and Gender Information Value Date Recorded Sex Assigned at Not on file Legal 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 Gender Identity Not on file Sexual Orientation Not on file Occupation Industry Job Start Date Job End Date Not on file Not on file Not on file Not on file Last Filed Vital Signs Vital Sign Reading Time Taken Comments Blood Pressure 147/79 02/19/2025 2:57 PM CDT Pulse 73 02/19/2025 2:50 PM CDT Temperature 36.6 C (97.8 F) 02/19/2025 2:50 PM CDT Respiratory Rate 16 02/19/2025 2:50 PM CDT Oxygen Saturation 96% 02/19/2025 2:50 PM CDT Inhaled Oxygen Concentration - - Weight 155.5 kg (342 lb 12.8 oz) 02/19/2025 2:50 PM CDT Height 182.9 cm (6') 02/19/2025 2:50 PM CDT Body Mass Index 46.49 02/19/2025 2:50 PM CDT Plan of Treatment Upcoming Encounters Date Type Department Care Team (Late st Contact Info) Description 04/02/2025 4:30 PM CDT Telephone Check Up [facility] Oncology and Hematology - [address] [facility] [address] [place] [address] Geremias Wagner MD [address] [place] [address] Health Maintenance Due Date Last Done Comments Pre-Diabetes and Diabetes Screening 1978 HEPATITIS B VACCINES (1 of 3 - 19+ 3-dose series) 1997 COLORECTAL SCREENING 2023 Colorectal Cancer Screening 2023 FIT-DNA Q 3 years 2023 FIT/FOBT Q 1 year 2023 Flex Sig/CT Colonography Q 5 years 2023 Preventative Visit- Commercial 08/14/2024 DTAP/TDAP/TD VACCINES (2 - Td or Tdap) 10/02/2024 10/02/2014 INFLUENZA VACCINE (#1) 2025 , 05/26/2022, 06/29/2021, Additional history exists HPV VACCINES Aged Out No longer eligi ble based on patient's age to complete this topic Medical Devices Implanted Type Area Saw Maker Device Identifier Shelf Expiration Date Model / Serial / Lot Fltr [place] Vena Cava Fem [id number] - [id number] Implanted:Qty: 1 on 06/29/2012 by Oseas Calderon MD at [facility] Catheter N/A: Vena Cava CR [employer] 02/10/2013 [id number] / / [id number] Insurance [place] [id number] [facility] OPTIONS PPO [id number] RX [facility] [employer] BCBS BLUE ACCESS CHOICE Advance Directives For more information, please contact: [phone] * Full Code (Latest Code Status on File) Date Activated Date Inactivated Comments 10/26/2012 10:40 AM 10/26/2012 2:33 PM * Full Code Date Activated Date Inactivated Comments 10/26/2012 8:00 AM 10/26/2012 10:40 AM * Full Code Date Activated Date Inactivated Comments 06/29/2012 11:29 AM 06/29/2012 3:52 PM * Full Code Date Activated Date Inactivated Comments 06/29/2012 8:00 AM 06/29/2012 11:29 AM Care Teams Senior Litigation Paralegal Relationship Specialty Start Date End Date Alfredo Hoffman MD PCP - General Family Practice 10/21/11
== END 2025-03-26 10:01 | disposition home or self-care (01) ==
PROVIDERS: PCP Family Medicine; Visit Provider Internal Medicine Hematology & Oncology
DX: I82.532 Chronic embolism and thrombosis of left popliteal vein (principal)
CPT/HCPCS: 93971

== ENCOUNTER 2025-07-07 09:10 | Outpatient (CLI) | payer BC, SELFPAY ==
--- NOTE | ~2025-07-07 | US_ITS ---
LEFT LOWER EXTREMITY VENOUS DUPLEX Clinical History: I82.409 - Acute embolism and thrombosis of unspecified de... COMPARISON: 03/26/2025 TECHNIQUE: Grayscale, color, duplex/spectral Doppler sonography left leg FINDINGS/IMPRESSION: 1. No significant change. 2. Chronic thrombus within popliteal vein. 3. Common femoral and femoral veins remain patent without thrombus, as do calf veins. Reviewed, dictated and finalized at location R. UGATED SHEET MATERIAL SHEETER
--- OUTSIDE RECORDS SUMMARY | 2025-07-07 10:07 | XMS_ITS | Clinical Summary ---
Author Organization [facility] Address [address] [place] [address] Care Team Providers Care Parachute Line Tier Name Role Phone Baljeet Biswas MD Primary Care Provider + [phone] Allergies Active Allergy Reactions Criticality Noted Date [...] Problem Noted Date Diagnosed Date Atherosclerosis of [place] ar [place]awit of both lower extremities with intermittent claudication 06/23/2022 Assessment & Plan (06/23/2022 4:58 PM SPOT WELDER LINE): Impression: Patient complains of calf tightness to [...] 5 Assessment & Plan (06/23/2022 5:02 PM SPOT WELDER LINE): Impression: Patient has a history of a right lower extremity DVT in 2011. Also diagnosed with factor 5 Leiden mutation. Patient reports he is currently not on any anticoagulation therapy. Plan: Recommend anticoagulation therapy with patient's history of Factor 5 Leiden. Will defer patient to primary care provider for management. DVT (deep venous thrombosis) 06/26/2012 Assessment & Plan (06/23/2022 5:01 PM SPOT WELDER LINE): Impression: Patient has a history of DVT [...] on file Legal Sex Male 4:34 AM SPOT WELDER LINE Gender Identity Not on file Sexual Orientation Not on file Last Filed Vital Signs Vital Sign Reading Time Taken Comments Blood Pressure 127/82 06/23/2022 8:41 AM SPOT WELDER LINE Pulse 73 06/23/2022 8:41 AM SPOT WELDER LINE Temperature - - Respiratory Rate - - Oxygen Saturation - - Inhaled Oxygen Concentration - - Weight - - Height 182.9 cm (6') 06/23/2022 8:41 AM SPOT WELDER LINE Body Mass Index - - Plan of Treatment Health Maintenance Due Date Last Done Comments Colon Cancer Screening-Colonoscopy 1978 Depression Screening 1978 Hepatitis C Screening 1978 Hepatitis B Screening 1996 Regular Well Visit/Exam 18-64 1996 DTaP/Tdap/Td Vaccine (2 - Td or Tdap) 10/02/2024 10/02/2014 Covid-19 Vaccine (3 - season) 2025 12/15/2020, 11/24/2020 Influenza Vaccine (#1) 2025 , 06/29/2021, 06/12/2020, Additional history exists HPV Vaccines Aged Out No longer eligi ble based on patient's age to complete this topic Pneumococcal vaccine <65 Aged Out No longer eligible based on patient's age to complete this topic Insurance [employer] OOS [employer] Care Teams Parachute Line Tier Relationship Specialty Start Date End Date Baljeet Biswas MD PCP - General Family Medicine 06/20/22
--- OUTSIDE RECORDS SUMMARY | 2025-07-07 10:07 | XMS_ITS | Clinical Summary ---
Author Organization [facility] en Address [address] [place], [place] [address] [address] Care Team Providers Care Special Agent In Charge Name Role Phone Alfredo Hoffman MD Primary Care Provider Allergies Active Allergy Reactions Criticality Noted Date Comments Cefazolin Rash Low 07/02/2012 Medications terbinafine HCL (LamISIL) 250 mg tablet Take 250 mg by mouth daily. Active lisinopriL (PRINIVIL) 10 mg tablet Take 1 Tablet by mouth daily. 01/13/2025 Active rivaroxaban (Xarelto) 20 mg TabletIndication s:Acute deep vein thrombosis (DVT) of left peroneal vein (CMS/HCC) Take 1 Tablet (20 mg) by mouth daily. 90 Tablet 1 05/15/2025 Active Active Problems Problem Noted Date Diagnosed Date Factor 5 Leiden mutation, heterozygous 5 DVT (deep venous thrombosis) 06/26/2012 Other pulmonary embolism and infarction 06/26/20 12 Resolved Problems Problem Noted Date Diagnosed Date Resolved Date Acute frontal sinusitis 04/12/2016 08/3 Encounters Date Type Department Care Team Description 05/15/2025 Refill [facility] Oncology and Hematology - [address] [place] [address] Geremias Wagner MD Acute deep vein thrombosis (DVT) of left peroneal vein (CMS/HCC) (Primary Dx) from Last 3 Months Immunizations Immunization Administration Dates Next Due (ADACEL/BOOSTRIX)( YR UP) TDAP VACCINE, 0.5ML, IM 10/02/2014 INFLUENZA VACCINE TRIVALENT SPLIT VIRUS, (6 MOS UP), 0.5ML (PF), IM 06/10/2025,07/26/2024 Family History Medical History Relation Name Comments [...] on file 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 Gender Identity Not on file Sexual Orientation [...] Care Team (Late st Contact Info) Description 07/14/2025 3:30 PM BARREL POLISHER INSIDE Office Visit [facility] Oncology and Hematology - [address] [place] [address] Geremias Wagner MD [address] [place] [address] Health Maintenance Due Date Last Done Comments Pre-Diabetes and Diabetes Screening 1978 HEPATITIS B VACCINES (1 of 3 - 19+ 3-dose series) 1997 COLORECTAL SCREENING 2023 Colorectal Cancer Screening 2023 FIT-DNA Q 3 years 2023 FIT/FOBT Q 1 year 2023 Flex Sig/CT Colonography Q 5 years 2023 Preventative Visit- Commercial 08/14/2024 DTAP/TDAP/TD VACCINES (2 - Td or Tdap) 10/02/2024 10/02/2014 COVID-19 Vaccine (3 - 2024- season) 2025 12/15/2020, 11/24/2020 INFLUENZA VACCINE Completed 06/10/2025, , 07/03/2023, Additional history exists HPV VACCINES Aged Out No longer eligi ble based on patient's age to complete this topic Medical Devices Implanted Type Area Head Housekeeper Device Identifier Shelf Expiration Date Model / Serial / Lot Fltr [place] Vena Cava Fem [id number] - [id number] Implanted:Qty: 1 on 06/29/2012 by Oseas Calderon MD at [facility] Catheter N/A: Vena Cava CR [employer] 02/10/2013 [id number] / / [id number] Insurance [facility] OPTIONS PPO [id number] RX [facility] BCBS BLUE ACCESS CHOICE Advance Directives For more information, please contact: [phone] * Full Code (Latest Code Status on File) Date Activated Date Inactivated Comments 10/26/2012 10:40 AM 10/26/2012 2:33 PM * Full Code Date Activated Date Inactivated Comments 10/26/2012 8:00 AM 10/26/2012 10:40 AM * Full Code Date Activated Date Inactivated Comments 06/29/2012 11:29 AM 06/29/2012 3:52 PM * Full Code Date Activated Date Inactivated Comments 06/29/2012 8:00 AM 06/29/2012 11:29 AM Care Teams Special Agent In Charge Relationship Specialty Start Date End Date Alfredo Hoffman MD PCP - General Family Practice 10/21/11
--- OUTSIDE RECORDS SUMMARY | 2025-07-07 10:07 | XMS_ITS | Clinical Summary ---
Author Organization [facility] Address [address] [place] [address] Care Team Providers Care Wet Trimmer Name Role Phone Unavailable Primary Care Provider [...] Comments Blood Pressure 152/82 10/05/2010 8:30 AM RAFTER CUTTING MACHINE OPERATOR Pulse 95 10/05/2010 8:30 AM RAFTER CUTTING MACHINE OPERATOR Temperature - - Respiratory Rate - - Oxygen Saturation - - Inhaled Oxygen Concentration - - Weight 129.3 kg (285 lb) 10/05/2010 8:30 AM RAFTER CUTTING MACHINE OPERATOR Height 184.8 cm (6' 0.75) 10/05/2010 8:30 AM CS T Body Mass Index 37.86 10/05/2010 8:30 AM RAFTER CUTTING MACHINE OPERATOR Plan of Treatment Health Maintenance Due Date Last Done Comments Colorectal Cancer Screening Colonoscopy (10 Years) 1978 Annual Physical 1981 Hepatitis C 1996 DTaP, Tdap and Td Vaccines ( 1 - Tdap) 1997 Hepatitis B Vaccines (1 of 3 - 19+ 3-dose series) 1997 COVID-19 Vaccine (2024-2 6 season) 2025 Influenza Adult (#1) 2025 Hepatitis A Vaccines Aged Out No long er eligible based on patient's age to complete this topic Meningococcal B Vaccine Aged Out No l [...]
--- OUTSIDE RECORDS SUMMARY | 2025-07-07 10:07 | XMS_ITS | Clinical Summary ---
Author Organization [facility] Address [address] [place] [address] Care Team Providers Care Director Of Research And Development Name Role Phone Baljeet Biswas MD Primary Care Provider [phone] Source Comments [facility],non-owned Affiliates and Associated Physician Practices is amultiple site organization consisting of ambulatory clinics and hospital sitesin [place], [place], [place] and [place]. This disclosure is being madepursuant to the Care Everywhere program and may not contain all information available regarding this patient. Last updated 18.[facility] Medications * Be aware that medications may [...] Problem Noted Date Diagnosed Date Resolved Date buttermaker helper current use of ant icoagulant therapy 08/22/2012 02/20/2013 Overview (05/14/2015): DVT (deep venous thrombosis) 07/09/2012 02/20/2013 Social History Tobacco Use Types Packs/Day Years Used Date Smoking Tobacco: Never Assessed Sex and Gender Information Value Date Recorded Sex Assigned at Not on file Legal Sex Male 11:32 AM RN LONG TERM CARE Gender Identity Not on file Sexual Orientation [...] of 3 - 19+ 3-dose series) 1997 DEPRESSION SCREENING 08/14/2024 COVID-19 VACCINE (1 - 2024-2 6 season) 2025 INFLUENZA VACCINE (#1) 2025 ZOSTER VACCINE (1 [...] patient's age to complete this topic Insurance [facility] * Guarantor: AWILDA ADDISON Account Type Relation to Patient Date of Phone Billing Address Personal/Family Other * Guarantor: AWILDA ADDISON Account Type Relation to Patient Date of Phone Billing Address Personal/Family Other * Guarantor: AWILDA ADDSION Account Type Relation to Patient Date of Phone Billing Address Personal/Family Other * Guarantor: AWILDA ADDISON Account Type Relation to Patient Date of Phone Billing Address Personal/Family Other Care Teams Director Of Research And Development Relationship Specialty Start Date End Date Baljeet Biswas MD [address] [place] [id number] PCP - General 03/29/22
== END 2025-07-07 09:11 | disposition home or self-care (01) ==
PROVIDERS: PCP Family Medicine; Visit Provider Internal Medicine Hematology & Oncology
DX: I82.532 Chronic embolism and thrombosis of left popliteal vein (principal)
CPT/HCPCS: 93971